=== PATIENT | female | born 1980 | race American Indian/Alaskan Native ===

== ENCOUNTER 2017-01-31 08:28 | Day surgery (SDC) | payer OTHER ==
[2017-01-31] MEDS ORDERED: NACL 0.9% 500 ML 500 ML IV SCH (09:00)
[2017-01-31] MEDS ORDERED: NACL 0.9% 500 ML 500 ML ONE (09:41)
[2017-01-31] MEDS ORDERED: NITROSTAT SL ONE (11:32)
[2017-01-31] MEDS ORDERED: ATROPINE 0.1% (CARDIAC) ONE (11:32)
[2017-01-31] MEDS ORDERED: ADRENALIN ONE (11:32)
[2017-01-31 14:08] VITALS: BP 103/52
--- NOTE | 2017-02-01 01:42 | Tilt Table Report ---
TILT TABLE TEST ORDERING PHYSICIAN: Stephen You MD INDICATION: Multiple episodes of syncope. DESCRIPTION OF PROCEDURE: After obtaining written consent, the patient was brought to the label printer area. The patient was securely fastened to the tilt table test. Her baseline blood pressure was 111/76 with a heart rate of 60 beats per minute. The patient was then tilted to 85 degrees from horizontal. Her blood pressure immediately after tilting was 134/80 with a heart rate of 86 beats per minute. The patient was kept in the upright position for about 9-10 minutes after which she was given nitroglycerin sublingual. Right before, she was given a sublingual nitroglycerin, her blood pressure was 114/81 with a heart rate of 80 beats per minute. Five minutes into the nitroglycerin, the patient started experiencing some dizziness and her heart rate went up to a maximum of 97, sinus rhythm with a blood pressure of 115/69. The patient afterwards lost consciousness with a drop in heart rate from 97 beats per minute to the 64, sinus rhythm with a blood pressure in the 100/62. The patient was tilted back to horizontal. The patient regained consciousness gradually. Her blood pressure after tilting was 108/73 with a heart rate of 70, sinus rhythm. IMPRESSION: This is a negative tilt table test with no evidence of a vasodepressor or a cardioinhibitory response. Although, the patient did lose consciousness; however, she sustained a stable heart rate and blood pressure. RECOMMENDATION: Follow up with referring quantitative software engineer. JOB# [id number] KEIKO/SOPHIA
== END 2017-01-31 08:29 | disposition home or self-care (01) ==
LOC: CATHLABREC 08:28
PROVIDERS: ATTEND Internal Medicine
DX: R55 Syncope and collapse (principal); E66.9 Obesity, unspecified; Z68.31 Body mass index [BMI] 31.0-31.9, adult; Z98.84 Bariatric surgery status; Z98.890 Other specified postprocedural states; Z82.49 Family history of ischemic heart disease and other diseases of the circulatory system
CPT/HCPCS: 93660; J7040; J0171; J0461